=== PATIENT | female | born 1960 | race Caucasian/White ===

== ENCOUNTER → 2017-03-18 | Day surgery (SDC) | payer MEDICARE, OTHER ==
[~2017-03-18] VITALS: Ht 160 cm; Wt 86.6 kg
[~2017-03-18] MED LIST: CARAFATE SU100 MG/ML PO; CATAPRES 0.1MG0.1 MG PO; CHANTIX1 MG PO; FERROUS SULFAT325 MG PO; FOLIC ACID1 MG PO; KLONOPIN TAB 00.5 MG PO; KLONOPIN1 MG PO; LISINOPRIL10 MG PO; NEURONTIN 300300 MG PO; NEURONTIN 400400 MG PO; NORCO 5-325 TA1 EACH PO; PROTONIX 40 MG40 M1 PO; VENTOLIN HFA 66.7 GM INH; VENTOLIN/PROVE0.5 ML INH; WELLBUTRIN XL150 M1 PO
== END | disposition home or self-care (01) ==
LOC: OR 07:17
PROVIDERS: Internal Medicine Gastroenterology
PROC: 0DJ08ZZ Inspection of Upper Intestinal Tract, Via Natural or Artificial Opening Endoscopic (ICD-10-PCS; principal; 2017-03-18 10:45)
DX: K22.10 Ulcer of esophagus without bleeding (principal); K44.9 Diaphragmatic hernia without obstruction or gangrene; K31.84 Gastroparesis; E66.9 Obesity, unspecified; F17.200 Nicotine dependence, unspecified, uncomplicated; Z88.6 Allergy status to analgesic agent; Z86.2 Personal history of diseases of the blood and blood-forming organs and certain disorders involving the immune mechanism; Z79.899 Other long term (current) drug therapy; Z90.49 Acquired absence of other specified parts of digestive tract
CPT/HCPCS: J2250; J3010; J7030

== ENCOUNTER 2017-04-09 16:30 | Emergency (ER) | payer MEDICARE, OTHER | END 2017-04-09 20:05 | disposition home or self-care (01) | LOC: ER1 16:30 | DX: S20.212A Contusion of left front wall of thorax, initial encounter (principal); D64.9 Anemia, unspecified; I10 Essential (primary) hypertension; F32.9 Major depressive disorder, single episode, unspecified; W18.30XA Fall on same level, unspecified, initial encounter; Z88.2 Allergy status to sulfonamides | CPT/HCPCS: 71111; 99283 ==